=== PATIENT | male | born 1960 | race Caucasian/White ===

== ENCOUNTER → 2019-07-27 10:32 | Outpatient (CLI) | payer OTHER, SELFPAY ==
[2019-07-27 14:00] LABS: Prostate Specific Antigen 0.373 ng/mL (0.10-4.00)
== END ==
PROVIDERS: Visit Provider Urology
DX: R35.1 Nocturia (principal); Z12.5 Encounter for screening for malignant neoplasm of prostate
CPT/HCPCS: 36415; 84153